=== PATIENT | male | born 1985 | race Caucasian/White ===

== ENCOUNTER 2024-03-28 03:23 | Emergency (ER) | payer MEDICAID ==
[~2024-03-28] VITALS: Ht 180.3 cm; Wt 95.0 kg
[2024-03-28 03:39] VITALS: O2SAT 97
[2024-03-28 04:18] LABS: BASOPHILS % 1.2 % (0.0-2.0); EOSINOPHILS % 2.1 % (0.0-5.0); HEMATOCRIT. 43.5 % (42.0-52.0); HEMOGLOBIN. 14.2 g/dL (14.0-18.0); LYMPHOCYTES % 20.4 % (20.0-50.0); MEAN CORPUSCULAR HEMOGLOBIN 26.8 pg (28.0-32.0); MEAN CORPUSCULAR HGB CONC 32.5 g/dL (31.0-37.0); MEAN CORPUSCULAR VOLUME 82.5 fL (80.0-94.0); MEAN PLATELET VOLUME 9.7 fl (7.4-10.4); MONOCYTES % 5.9 % (2.0-8.0); NEUTROPHILS % 70.4 % (40.0-76.0); PLATELET 223 x1000/uL (130-400); RED BLOOD CELL COUNT 5.28 mill/uL (4.7-6.1); RED CELL DISTRIBUTION WIDTH 16.2 % (11.6-14.6); WHITE BLOOD COUNT 14.8 x1000/uL (4.5-11.0)
[2024-03-28 04:24] LABS: CHLORIDE 101 mEq/L (98-107); POTASSIUM 3.4 mEq/L (3.5-5.1); SODIUM 136 mEq/L (136-145)
[2024-03-28 04:25] LABS: CALCIUM 10.2 mg/dL (8.7-10.4); CARBON DIOXIDE 25 mEq/L (21-32)
[2024-03-28 04:30] LABS: CREATININE 1.3 mg/dL (0.6-1.3); UREA NITROGEN BLOOD 15 mg/dL (9-23)
[2024-03-28 04:31] LABS: TROPONIN I HIGH SENSITIVITY 5 ng/L (3.0-53)
[2024-03-28 04:32] LABS: ALANINE AMINOTRANSFERASE 157 IU/L (10-49); ALBUMIN 4.7 g/dL (3.2-4.8); ASPARTATE AMINOTRANSFERASE 32 IU/L (<34)
[2024-03-28 04:33] LABS: BILIRUBIN DIRECT 0.2 mg/dL (<=3.0); BILIRUBIN TOTAL 0.5 mg/dL (0.1-1.0); PROTEIN TOTAL 8.8 g/dL (6.0-8.3)
[2024-03-28 04:43] LABS: GLUCOSE 486 mg/dL (70-105)
[2024-03-28 05:19] LABS: CLARITY URINE CLOUDY (CLEAR); COLOR URINE YELLOW (YELLOW); GLUCOSE URINE 3+ (NEGATIVE); KETONES URINE NEGATIVE (NEGATIVE); LEUKOCYTE ESTERASE URINE 1+ (NEGATIVE); NITRITE URINE NEGATIVE (NEGATIVE); OCCULT BLOOD URINE 2+ (NEGATIVE); PH URINE 5.5 (4.5-8.0); PROTEIN URINE 1+ (NEGATIVE); SPECIFIC GRAVITY URINE 1.038 (1.005-1.030); UROBILINOGEN URINE 0.2 E.U./dL (0.2-1.0)
[2024-03-28] MEDS: LACTULOSE 20G/30ML UDC PO ONE (06:01)
[2024-03-28] MEDS: CEFTRIAXONE SODIUM 1G VIAL IM ONE (06:01)
[2024-03-28] MEDS: DOXYCYCLINE HYCLATE 100MG CAPSULE PO ONE (06:01)
[2024-03-28] MEDS ORDERED: POLY17PO3 MT (06:41)
[2024-03-28] MEDS ORDERED: DOXY100C5 PO (06:41)
[2024-03-28] MEDS ORDERED: HYDR12.54 MT (06:50)
[2024-03-28 06:57] LABS: SQUAMOUS EPITHELIAL CELL URINE NONE SEEN /lpf (RARE/1+)
[2024-03-28 06:58] LABS: WBC URINE 50-100 /hpf (0-2)
[2024-03-28 07:01] LABS: BACTERIA URINE 1+; YEAST URINE 3+
[2024-03-28] MEDS: HYDRALAZINE 20MG/ML VIAL IV ONE (07:09)
[2024-03-28 07:16] VITALS: BP 182/130; PULSE 97; RESP 11; TEMP 98.5
[2024-03-30 05:12] LABS: CHLAMYDIA TRACHOMATIS NAA Negative (Negative); NEISSERIA GONORRHOEAE NAA Negative (Negative)
== END 2024-03-28 07:22 | disposition home or self-care (01) ==
LOC: ER 03:23
DX: A64 Unspecified sexually transmitted disease (principal); R10.9 Unspecified abdominal pain; I10 Essential (primary) hypertension; F12.10 Cannabis abuse, uncomplicated; R73.9 Hyperglycemia, unspecified
CPT/HCPCS: 87491; 87591; 80076; 80048; 81003; 87106; 85025; 87086; 84484; 36415; 96372; 96374; 99284; J0696; J0360; Z7610 ×4

== ENCOUNTER 2024-12-18 13:25 | Emergency (ER) | payer MEDICAID ==
[~2024-12-18 13:25] MED LIST: DOXY100C5 PO; HYDR12.54 MT; POLY17PO3 MT
== END 2024-12-18 14:05 | disposition left against medical advice (07) ==
LOC: ER 13:27
DX: R11.10 Vomiting, unspecified (principal); Z53.21 Procedure and treatment not carried out due to patient leaving prior to being seen by health care provider